=== PATIENT | female | born 1935 | race Two or more races ===

== ENCOUNTER 2018-05-29 14:56 | Emergency (ER) | payer OTHER ==
[~2018-05-29] VITALS: Ht 157.5 cm; Wt 53.5 kg
[~2018-05-29 14:56] MED LIST: ADVIL200 MG PO; BENTYL10 MG/ML; COLACE100 MG PO; ENALAPRIL MALE2.5 MG; METFORMIN HCL500 MG PO; OMEPRAZOLE10 MG; RIOMET500 MG/5 M; SULFAMETHOXAZOL1 TA3 PO
[2018-05-29] MEDS ORDERED: PROTONIX40 MG (15:42)
[2018-05-29] MEDS ORDERED: VASOTEC5 MG (15:43)
[2018-05-29] MEDS ORDERED: TRENTAL (15:44)
== END 2018-05-29 20:39 | disposition home or self-care (01) ==
LOC: ER 14:56
DX: K59.09 Other constipation (principal); K29.60 Other gastritis without bleeding; N39.0 Urinary tract infection, site not specified; R10.84 Generalized abdominal pain